=== PATIENT | female | born 1955 | race Hispanic/Latino ===

== ENCOUNTER 2020-08-26 10:55 | Outpatient (CLI) | payer OTHER | END 2020-08-26 10:56 | disposition home or self-care (01) | LOC: BURRAD 10:55 | PROVIDERS: ATTEND Family Medicine | DX: M54.10 Radiculopathy, site unspecified (principal); M47.816 Spondylosis without myelopathy or radiculopathy, lumbar region; M43.16 Spondylolisthesis, lumbar region; M43.17 Spondylolisthesis, lumbosacral region | CPT/HCPCS: 72100 ==